=== PATIENT | male | born 1970 | race African-American/Black ===

== ENCOUNTER 2025-07-15 11:04 | Emergency (ER) | payer OTHER ==
--- NOTE | 2025-07-15 12:31 | RAD REPORT ---
EXAM: Knee Left 3 View INDICATION: PAIN COMPARISON: None FINDINGS: No acute fracture. Small knee effusion. Tricompartmental degenerative changes. Moderate lateral compartment joint space narrowing with fairly pronounced subchondral sclerosis and mild marginal osteophytosis. Mild medial compartment narrowing and small marginal osteophytes. Mild patellofemoral compartment degenerative changes. Other: N/A IMPRESSION: No acute osseous abnormality involving the imaged knee. Degenerative changes as noted abo ve but most pronounced in the lateral component..
[2025-07-15 12:43] LABS: Absolute Lymphocytes (CBC) 1.9 K/uL (0.7-4.9); Hematocrit 45.2 % (39.6-49.0); Hemoglobin 15.1 g/dL (13.6-17.9); MCH 30.9 pg (27.0-35.0); MCHC 33.3 g/dL (32.0-36.0); MCV 92.9 fL (80-100); MPV 6.4 fL (7.6-11.3); Nucleated RBC Absolute Count 0.0 (0-0); Nucleated Red Blood Cells % 0.2 % (0-0); RBC Red Blood Cell Count 4.87 M/uL (4.33-5.43); White Blood Count 4.50 thou/uL (4.3-10.9)
[2025-07-15 13:01] LABS: ALT/SGPT 40.0 U/L (16-61); AST/SGOT 32.0 U/L (15-37); Albumin 3.6 g/dL (3.4-5.0); Albumin/Globulin Ratio 0.8 (1.1-1.8); Alkaline Phosphatase 88.0 U/L (45-117); Anion Gap 7.1 mEq/L (5.0-15.0); BUN Blood Urea Nitrogen 14.0 mg/dL (7-18); Globulin 4.4 g/dL (2.3-3.5); Glucose Level 92.0 mg/dL (74-106); Lipase 29.0 U/L (13-75); Potassium 4.1 mEq/L (3.5-5.1)
--- NOTE | 2025-07-15 13:34 | RAD REPORT ---
EXAMINATION: Head Brain Wo Cont CLINICAL INDICATION: Male, 55 years old.NUMBNESS TECHNIQUE: Axial CT images from the skull base to the vertex without intravenous contrast. Coronal an d sagittal reformatted images were created from the data set. One or more of the following dose reduction techniques were used: Automated exposure control, adjustment of the mA and/or kV according to patient size, and/or iterative reconstruction. Unless otherwise specified, incidental findings do not require dedicated imaging follow-up. [id number]. COMPARISON: No prior exams FINDINGS: INTRACRANIAL: No acute intracranial hemorrhage. No acute large vascular territory infarct. No hydroce phalus. No mass effect or midline shift. No significant white matter disease. VASCULATURE: No visualized abnormalities in the arteries or dural venous sinuses. SCALP/SKULL: No calvarial fracture identified. No acute soft tissue abnormality. SINUSES: The visualized paranasal sinuses are mostly clear. No significant mastoid fluid. IMPRESSION: No acute intracranial abnormality.
--- NOTE | 2025-07-15 13:44 | RAD REPORT ---
EXAMINATION: Abdomen Pelvis W Contrast CLINICAL INDICATION: Male, 55 years old.back pain;Abd pain TECHNIQUE: CT abdomen and pelvis was performed, after the administration of IV contrast, as per [facility] protocol. Axial, sagittal and coronal reconstructions were obtained. One or more of the following dose reduction techniques were used: Automated exposure control, adjustment of the mA and/o r kV according to patient size, and/or iterative reconstruction. Unless otherwise specified, incidental findings do not require dedicated imaging follow-up. [id number]. COMPARISON: No prior exams FINDINGS: LOWER CHEST: No acute process identified.No significant pericardial effusion. UPPER GI: No significant abnormality. LIVER: Benign appearing low density liver lesions. No suspicious mass. GALLBLADDER/BILE DUCTS: No biliary ductal dilatation.? PANCREAS: No mass, ductal dilation, or mariano-pancreatic fluid. SPLEEN: Unremarkable. ADRENALS: No adrenal masses. KIDNEYS AND URETERS: No hydronephrosis.No suspicious renal mass.No renal calculi.No ureteral calculi. ABDOMINAL AORTA AND OTHER VESSELS: Normal caliber aorta and IVC. PERITONEUM: No abnormal free fluid. No free air. LYMPH NODES: No pathologic lymphadenopathy. ABDOMINAL WALL: Unremarkable SMALL BOWEL/COLON: Small bowel has normal course and caliber. No colonic wall thickening or pericolon ic inflammatory changes. URINARY BLADDER: Circumferential thickening which may be secondary to chronic bladder outlet obstruct ion. REPRODUCTIVE ORGANS: Penile prosthesis. [place] in the right lower quadrant does not appear connect ed. The left lower quadrant reservoir also may be disconnected and the reservoir is empty. MUSCULOSKELETAL: Status post L3-L5 fusion. Interbody cage present at L4-5. Endplate irregularity and sclerosis may be related to advanced degenerative changes. Discitis/osteomyelitis also a consideration in the upper clinical setting. Grade 1 anterolisthesis of L4 and L5. Changes of L4-5 po sterior decompression. ADDITIONAL FINDINGS: None. IMPRESSION: No acute findings within the abdomen or pelvis. Status post L3-L5 fusion with posterior decompression at L4-5. Interbody cages present at L4-5. There is significant endplate irregularity and sclerosis. This could reflect either advanced degenerative changes however discitis ostium myelitis is a consideration in the appropriate clinical setting.
--- NOTE | 2025-07-15 13:54 | EDPHYS ---
Physician Documentation [facility] Name: Goldie Meng Age: 55 yrs Sex: Male : 1970 Arrival Date: 07/15/2025 Time: 11:04 Bed 19 Private MD: ED Physician Orlando Cook HPI: 07/15 11:29 This 55 yrs old Male presents to ER via EMS with complaints of Back Pain. kb 11:29 Pt is a 55 year old male who presents for pain to left low back and left lower abd that kb radiates down left leg. Also reports left knee pain and swelling. States this has been going on for over a month, but he had been "numbing the pain with medication." Denies urinary symptoms. Denies injury or trauma. . Historical: - Allergies: 11:15 Bactrim; me1 - PMHx: 11:15 Hypertensive disorder; Drug abuse; HIV positive; me1 11:20 [place] palsy; me1 - PSHx: 11:15 Appendectomy; Tonsillectomy; me1 - Immunization history:: Adult Immunizations up to date. - Infectious Disease History:: Denies. - Social history:: Smoking status: Patient reports the use of cigarette tobacco products, smokes one pack cigarettes per day. ROS: 11:27 Constitutional: As per HPI kb Exam: 11:27 Constitutional: This is a well developed, well nourished patient who is awake, alert, kb and in no acute distress. Head/Face: Normocephalic, atraumatic. ENT: Moist Mucous membranes Cardiovascular: Regular rate Respiratory: Respirations even and unlabored. No increased work of breathing. Talking in full sentences Skin: Warm, dry with normal turgor. Normal color. Neuro: Awake and alert, GCS 15, oriented to person, place, time, and situation. 11:27 Abdomen/GI: Inspection: abdomen appears normal, Bowel sounds: normal, Palpation: soft, in all quadrants, mild abdominal tenderness, in the left lower quadrant, 11:27 Back: pain, that is moderate, of the left low back, CVA tenderness, is absent, 11:27 Musculoskeletal/extremity: Extremities: grossly normal except: noted in the left knee: pain, ROM: intact in all extremities, Circulation is intact in all extremities. Sensation intact. Vital Signs: 11:13 BP 124 / 93; Pulse 94; Resp 17; Temp 98.1; Pulse Ox 100% ; Weight 65.32 kg; Height 5 me1 ft. 9 in. ; Pain 8/10; 12:00 BP 125 / 87; Pulse 72; Resp 16; Pulse Ox 100% ; me1 13:00 BP 131 / 90; Pulse 75; Resp 15; Pulse Ox 100% ; me1 14:00 BP 132 / 89; Pulse 92; Resp 16; Temp 98.2; Pulse Ox 100% ; me1 11:13 Body Mass Index 21.26 (65.32 kg, 175.26 cm) me1 11:13 Pain Scale: Adult me1 MDM: 11:15 Medical Screening Exam initiated kb 13:57 Differential diagnosis: arthritis, strain, fracture, sciatica, contusion, Herniated kb disc Diverticulitis, kidney stone, CVA. Data reviewed: vital signs, nurses notes. Counseling: I had a detailed discussion with the patient and/or guardian regarding the historical points, exam findings, and any diagnostic results supporting the discharge/admit diagnosis, lab results, radiology results, the need for outpatient follow up, a family practitioner, to return to the emergency department if symptoms worsen or persist or if there are any questions or concerns that arise at home. 07/15 11:24 Order name: CBC with Diff; Complete Time: 12:50 kb 07/15 11:24 Order name: CMP; Complete Time: 13:25 kb 07/15 11:24 Order name: Lipase; Complete Time: 13:25 kb 07/15 11:24 Order name: CT Abd/Pelvis - IV Contrast Only; Complete Time: 13:46 kb 07/15 11:24 Order name: Knee Left 3 View XRAY; Complete Time: 12:34 kb 07/15 11:24 Order name: CT Head Brain wo Cont; Complete Time: 13:38 kb 07/15 11:24 Order name: IV Saline Lock; Complete Time: 12:39 kb 07/15 11:24 Order name: Labs collected and sent; Complete Time: 12:39 kb Administered Medications: 14:04 Drug: predniSONE PO 40 mg PO once Route: PO; me1 14:05 Follow up: Response: No adverse reaction me1 14:04 Drug: Ketorolac IVP 15 mg IVP once Route: IVP; Site: right antecubital; me1 14:05 Follow up: Response: No adverse reaction; Pain is decreased me1 Disposition: 17:11 Co-signature as Attending Physician, Orlando Cook MD I reviewed the patient's care rn provided by the Advanced Practice Provider and agree with the diagnosis and treatment plan. Disposition Summary: 07/15/25 13:54 Discharge Ordered Notes: Location: Home kb Condition: Stable kb Diagnosis - Sciatica, left side kb Followup: kb - With: Emergency Department - When: As needed - Reason: Worsening of condition Followup: kb - With: Private Physician - When: 2 - 3 days - Reason: Recheck today's complaints, Continuance of care, Re-evaluation by your physician Discharge Instructions: - Discharge Summary Sheet kb - Sciatica, [place] kb Forms: - Medication Reconciliation Form kb - Antibiotic Education kb - Prescription Opioid Use kb - Patient Portal Instructions kb - Leadership Thank You Letter kb Prescriptions: - Ibuprofen 800 mg Oral Tablet - take 1 tablet ORAL route every 8 hours As needed take with food; 30 tablet; kb Refills: 0, Product Selection Permitted - Prednisone 20 mg Oral Tablet - take 1 tablet ORAL route once daily for 5 days; 5 tablet; Refills: 0, Product kb Selection Permitted - orphenadrine citrate 100 mg Oral Tablet Sustained Release - take 1 tablet ORAL route 2 times per day As needed; 20 tablet; Refills: 0, kb Product Selection Permitted Signatures: Dispatcher [employer] Gabriela Luna, COKEMAN-C COKEMAN-Ckb Orlando Cook MD MD rn Eddleman, Michelle, RN RN me1
--- NOTE | 2025-07-15 13:54 | ER ---
Nurse's Notes [facility] Name: Goldie Meng Age: 55 yrs Sex: Male : 1970 Arrival Date: 07/15/2025 Time: 11:04 Bed 19 Private MD: Diagnosis: Sciatica, left side Presentation: 07/15 11:13 Chief complaint: EMS states: toned out to [facility] for back pain and L leg pain, me1 generalized weakness. Report that slurred speech is patient's baseline. Coronavirus screen: Vaccine status: Patient reports receiving the 2nd dose of the covid vaccine. Ebola Screen: No symptoms or risks identified at this time. Initial Sepsis Screen: Does the patient meet any 2 criteria? No. Patient's initial sepsis screen is negative. Does the patient have a suspected source of infection? No. Patient's initial sepsis screen is negative. Risk Assessment: Do you want to hurt yourself or someone else? Patient reports no desire to harm self or others. Onset of symptoms is unknown. 11:13 Method Of Arrival: EMS: [facility] [place] 11:13 Acuity: LAUREN 3 me1 Triage Assessment: 11:15 General: Appears uncomfortable, Behavior is calm, cooperative, appropriate for age. me1 Pain: Complains of pain in left low back Pain radiates to left hamstring Pain currently is 8 out of 10 on a pain scale. Quality of pain is described as aching, Pain began a couple of weeks ago Is continuous. EENT: No signs and/or symptoms were reported regarding the EENT system. Neuro: Level of Consciousness is awake, alert, obeys commands, Oriented to person, place, time, situation, Appropriate for age Operations Research Scientist are equal bilaterally Moves all extremities. Full function Gait is steady, Speech is slurred, at baseline. Facial symmetry appears normal, Pupils are PERRLA, Intact. Cardiovascular: Patient's skin is warm and dry. Respiratory: Airway is patent Respiratory effort is even, unlabored, Respiratory pattern is regular, symmetrical. GI: No signs and/or symptoms were reported involving the gastrointestinal system. : No signs and/or symptoms were reported regarding the genitourinary system. Derm: Skin is intact, is healthy with good turgor, Skin is normal. Musculoskeletal: Circulation, motion, and sensation intact. Range of motion: intact in all extremities, Reports pain in back and left hamstring since a few weeks ago. Historical: - Allergies: 11:15 Bactrim; me1 - PMHx: 11:15 Hypertensive disorder; Drug abuse; HIV positive; me1 11:20 [place] palsy; me1 - PSHx: 11:15 Appendectomy; Tonsillectomy; me1 - Immunization history:: Adult Immunizations up to date. - Infectious Disease History:: Denies. - Social history:: Smoking status: Patient reports the use of cigarette tobacco products, smokes one pack cigarettes per day. Screenin:19 [facility] ED Fall Risk Assessment (Adult) History of falling in the last 3 months, me1 including since admission No falls in past 3 months (0 pts) Confusion or Disorientation No (0 pts) Intoxicated or Sedated No (0 pts) Impaired Gait No (0 pts) Mobility Assist Device Used No (0 pt) Altered Elimination No (0 pt) Score/Fall Risk Level 0 - 2 = Low Risk Maintained a safe environment, Provided non-skid footwear, Hourly rounding (assess needs \T\ fall precautionary measures) done. Abuse screen: Denies threats or abuse. Nutritional screening: No deficits noted. Tuberculosis screening: No symptoms or risk factors identified. Assessment: 11:19 General: See triage assessment. il1 Vital Signs: 11:13 BP 124 / 93; Pulse 94; Resp 17; Temp 98.1; Pulse Ox 100% ; Weight 65.32 kg; Height 5 me1 ft. 9 in. ; Pain 8/10; 12:00 BP 125 / 87; Pulse 72; Resp 16; Pulse Ox 100% ; me1 13:00 BP 131 / 90; Pulse 75; Resp 15; Pulse Ox 100% ; me1 14:00 BP 132 / 89; Pulse 92; Resp 16; Temp 98.2; Pulse Ox 100% ; me1 11:13 Body Mass Index 21.26 (65.32 kg, 175.26 cm) me1 11:13 Pain Scale: Adult il1 ED Course: 11:08 Patient arrived in ED. bc6 11:12 Cece Aguilar, VITO is Primary Nurse. me1 11:14 Gabriela Webb FNP-C [facility]. kb 11:14 Orlando Cook MD is Attending Physician. kb 11:15 Triage completed. me1 11:15 Arm band placed on Patient placed in an exam room. me1 11:19 Patient has correct armband on for positive identification. Bed in low position. Call me1 light in reach. Side rails up X2. Provided Education on: POC. Verbalized understanding.. Client placed on continuous cardiac and pulse oximetry monitoring. NIBP monitoring applied. Pulse ox on. NIBP on. 11:19 No provider procedures requiring assistance completed. me1 11:52 Missed attempt(s): 24 gauge in left hand. me1 11:52 Missed attempt(s): 24 gauge in right hand. me1 12:23 Knee Left 3 View XRAY In Process Unspecified. EDMS 12:42 Accessed peripheral vein via ultrasound, utilizing dynamic ultrasound technique using ss 20G Nexia IV catheter ,sterile technique, per hospital protocol. Clean \T\ dry. Dressing intact. Good blood return. Flushes easily. R AC. US GUIDED> . 13:26 CT Abd/Pelvis - IV Contrast Only In Process Unspecified. EDMS 13:26 CT Head Brain wo Cont In Process Unspecified. EDMS 14:16 IV discontinued, intact, bleeding controlled, No redness/swelling at site. Pressure me1 dressing applied. Administered Medications: 14:04 Drug: predniSONE PO 40 mg PO once Route: PO; me1 14:05 Follow up: Response: No adverse reaction me1 14:04 Drug: Ketorolac IVP 15 mg IVP once Route: IVP; Site: right antecubital; me1 14:05 Follow up: Response: No adverse reaction; Pain is decreased me1 Medication: 11:19 VIS not applicable for this client. me1 Outcome: 13:54 Discharge ordered by MD. noel 14:16 Discharged to home via wheelchair, [place] [address] me1 14:16 Condition: stable 14:16 Discharge instructions given to patient, Instructed on discharge instructions, follow up and referral plans. medication usage, Demonstrated understanding of instructions, follow-up care, medications, Prescriptions given X 3, 14:17 Patient left the ED. me1 Signatures: Dispatcher [employer] EDGabriela Dasilva, ERA JACOBSON-Gely Meneses RN RN Rosalva Santoyo Cece Aguilar RN RN me1 Corrections: (The following items were deleted from the chart) 14:16 14:00 BP 132 / 89; Pulse 92bpm; Resp 16bpm; Pulse Ox 100%; me1 me1
[2025-07-15] MEDS ORDERED: KETOROLAC 30 MG/ML INJ ONE (13:59)
[2025-07-15] MEDS ORDERED: predniSONE 20 MG TAB ONE ×2 (14:00→14:02)
[2025-07-15 14:43] VITALS: O2SAT 100
[2025-07-15 14:48] VITALS: BP 132/89; TEMP 98.2
== END 2025-07-15 14:17 | disposition home or self-care (01) ==
LOC: ER 11:04
DX: M54.32 Sciatica, left side (principal); M25.562 Pain in left knee; F17.210 Nicotine dependence, cigarettes, uncomplicated
CPT/HCPCS: 85025; 36415; 83690; 80053; 70450; 74177; 73562; 96374; 99285; Q9967; J7512 ×2